=== PATIENT | female | born 1995 | race Caucasian/White ===

== ENCOUNTER 2020-09-12 11:10 | Emergency (ER) | payer OTHER ==
[~2020-09-12] VITALS: Ht 154.9 cm; Wt 100.0 kg
[2020-09-12 11:21] VITALS: TEMP 98.9
[2020-09-12] MEDS ORDERED: FLEXERIL 1010 MG/TAB PO (13:44)
[2020-09-12 13:50] VITALS: BP 125/77; PULSE 77
== END 2020-09-12 13:55 | disposition home or self-care (01) ==
LOC: COL.ER 11:10
DX: S39.012A Strain of muscle, fascia and tendon of lower back, initial encounter (principal); V89.2XXA Person injured in unspecified motor-vehicle accident, traffic, initial encounter
CPT/HCPCS: J1885